=== PATIENT | male | born 1980 | race Hispanic/Latino ===

== ENCOUNTER 2017-05-27 16:40 | Emergency (ER) | payer OTHER ==
[2017-05-27 16:40] VITALS: BMI 25.4
[2017-05-27 16:47] VITALS: TEMP 97.5
--- NOTE | 2017-05-27 16:59 | C.PDOC ---
History Of Present Illness 36 y/o male brought to ED by EMS for rib pain and right sided chest pain for 1 week status post falling and landing on steps. Patient is known to be a drug addict and states he takes percocet every day but reports he has not used fopr 1 week. Patient denies loc, numbness, weakness, sob, cough or any other complaints at this time. Time Seen by Provider: 05/27/17 16:41 Chief Complaint (Nursing): Rib Injury History Per: Patient History/Exam Limitations: no limitations Onset/Duration Of Symptoms: Days Current Symptoms Are (Timing): Still Present Past Medical History Reviewed: Historical Data, Nursing Documentation, Vital Signs Vital Signs: Last Vital Signs Temp 97.5 F L 05/27/17 16:46 Pulse 86 05/27/17 16:46 Resp 20 05/27/17 16:46 BP 125/90 05/27/17 16:46 Pulse Ox 99 05/27/17 18:36 - Medical History PMH: Migraine Surgical History: Appendectomy - [facility] Procedures CLOSURE SKIN & SUBCUTANEOUS NEC (02/14/02) Family History: States: No Known Family Hx - Social History Hx Tobacco Use: Yes Hx Alcohol Use: No Hx Substance Use: Yes (Heroin recovering addict, but used two days ago) - Immunization History Hx Tetanus Toxoid Vaccination: No Hx Influenza Vaccination: No Hx Pneumococcal Vaccination: No Review Of Systems Constitutional: Negative for: Fever, Chills Cardiovascular: Positive for: Chest Pain Gastrointestinal: Negative for: Nausea, Vomiting Musculoskeletal: Positive for: Other (rib pain) Skin: Negative for: Rash Neurological: Negative for: Weakness, Numbness Physical Exam - Physical Exam Appears: Non-toxic, No Acute Distress, Other (Malodorous, Poor hygiene) Skin: Warm, Dry, No Rash, No Ecchymosis Head: Atraumatic, Normacephalic Eye(s): bilateral: Normal Inspection Oral Mucosa: Moist Neck: Normal ROM, Supple Chest: Tenderness (right anterior chest wall) Cardiovascular: Rhythm Regular Respiratory: Normal Breath Sounds, No Rales, No Rhonchi, No Wheezing Gastrointestinal/Abdominal: Soft, No Tenderness, No Guarding, No Rebound Extremity: Normal ROM, Capillary Refill (<2 seconds) Neurological/Psych: Oriented x3 ED Course And Treatment O2 Sat by Pulse Oximetry: 99 (RA) Pulse Ox Interpretation: Normal - Radiology CXR: Interpreted by Me CXR Interpretation: Yes: No Acute Disease Progress Note: Treated with motrin 600 mg PO. On re-evaluation lungs clear, in no distress. Discharge in stable condition Reassessment Condition: Improved Medical Decision Making Medical Decision Making: Plan: CXR, Motrin Disposition Counseled Patient/Family Regarding: Studies Performed, Diagnosis, Need For Followup, Rx Given - Disposition Referrals: [facility] [Outside] [facility] [Outside] [facility] [Outside] Disposition: HOME/ ROUTINE Disposition Time: 18:45 Condition: STABLE Additional Instructions: Take deep breaths every 2 hours Return to ED if any increase symptoms Prescriptions: Naproxen [Naprosyn] 1 tab PO BID PRN #25 tab PRN Reason: Pain Instructions: Chest Wall Pain (ED) Forms: [facility] ([place]) - POA Present On Arrival: None - Clinical Impression Clinical Impression: Contusion of rib, Chest wall pain - PA / COOK CHILI / Resident Statement MD/DO has reviewed & agrees with the documentation as recorded. - Scribe Statement The provider has reviewed the documentation as recorded by the Nixonibrica Cherry All medical record entries made by the Gray were at my direction and personally dictated by me. I have reviewed the chart and agree that the record accurately reflects my personal performance of the history, physical exam, medical decision making, and the department course for this patient. I have also personally directed, reviewed, and agree with the discharge instructions and disposition.
--- NOTE | 2017-05-27 17:22 | RAD ---
HISTORY: SOB COMPARISON: None available. TECHNIQUE: Chest PA and lateral FINDINGS: LUNGS: No focal consolidation. Please note that chest x-ray has limited sensitivity for the detection of pulmonary masses. PLEURA: No significant pleural effusion identified. No definite pneumothorax . CARDIOVASCULAR: Heart size appears within normal limits. OSSEOUS STRUCTURES: No acute osseous abnormality identified. VISUALIZED UPPER ABDOMEN: Unremarkable. OTHER FINDINGS: None. IMPRESSION: No focal consolidation, significant pleural effusion, or definite pneumothorax identified.
[2017-05-27 19:23] VITALS: BP 115/66; PULSE 68; RESP 18; O2SAT 100
== END 2017-05-27 19:22 | disposition home or self-care (01) ==
LOC: C.ER 16:40
DX: S20.211A Contusion of right front wall of thorax, initial encounter (principal); W10.8XXA Fall (on) (from) other stairs and steps, initial encounter; Y92.89 Other specified places as the place of occurrence of the external cause

== ENCOUNTER 2017-06-19 11:39 | Inpatient (IN) | payer OTHER ==
[2017-06-19 11:43] VITALS: BMI 20.3
[2017-06-19 12:21] LABS: SQUAMOUS EPITHIAL < 1 /hpf (0-5); URINE BILIRUBIN NEGATIVE (NEGATIVE); URINE BLOOD NEGATIVE (NEGATIVE); URINE CLARITY Clear (Clear); URINE COLOR Yellow (YELLOW); URINE GLUCOSE (UA) NORMAL (Normal); URINE LEUKOCYTE ESTERASE NEG Leu/uL (Negative); URINE NITRATE NEGATIVE (NEGATIVE); URINE PROTEIN NEGATIVE (NEGATIVE)
[2017-06-19 12:32] LABS: ALB/GLOB RATIO 1.2 (1.0-2.1); ALBUMIN 3.7 g/dL (3.5-5.0); ALT/SGPT 55 U/L (21-72); AST/SGOT 35 U/L (17-59); BLOOD UREA NITROGEN 15 mg/dL (9-20); CALCIUM 9.1 mg/dl (8.6-10.4); GFR AFRICAN-AMERICAN > 60; GFR NON-AFRICAN AMERICAN > 60
[2017-06-19 12:46] LABS: BASO # 0.1 K/uL (0.0-0.2); BASO % 1.1 % (0.0-2.0); EOS # 0.1 K/uL (0.0-0.7); EOS % 2.2 % (0.0-4.0); HEMOGLOBIN 12.3 g/dL (12.0-18.0); LYMPH # 2.3 K/uL (1.0-4.3); LYMPH % 38.1 % (20.0-40.0); MEAN CELL VOLUME 86.9 fL (80.0-94.0); MEAN CORPUSCULAR HEMOGLOBIN 30.6 pg (27.0-31.0); MEAN CORPUSCULAR HGB CONC 35.2 g/dL (33.0-37.0); MEAN PLATELET VOLUME 7.3 fL (7.2-11.7); MONO # 0.7 K/uL (0.0-0.8); NEUT # 2.8 K/uL (1.8-7.0); NEUT % 46.6 % (50.0-75.0); NRBC % 0.1 % (0.0-2.0); RBC 4.03 Mil/uL (4.40-5.90); RED CELL DISTRIBUTION WIDTH 13.5 % (11.5-14.5); WHITE BLOOD COUNT 5.9 K/uL (4.8-10.8)
[2017-06-19 13:06] LABS: BARBITURATES, UR NEGATIVE (NEGATIVE); PHENCYCLIDINE, UR NEGATIVE (NEGATIVE)
[2017-06-19 13:25] LABS: BENZODIAZEPINES, UR POSITIVE (NEGATIVE); OPIATES, UR POSITIVE (NEGATIVE)
--- NOTE | 2017-06-19 14:36 | C.PDOC ---
History Of Present Illness 36 y/o male presents to the ER for detox from heroin and benzodiazepines. Patient reports that he uses 6 to 10 bags of heroin IV daily and he last used heroin about 2 days ago. He uses various kinds of benzodiazepines and he last used them today. Patient denies having any physical complaints. Chief Complaint (Nursing): Substance Abuse History Per: Patient History/Exam Limitations: no limitations Past Medical History Reviewed: Historical Data, Nursing Documentation, Vital Signs Vital Signs: Last Vital Signs Temp 98.4 F 06/20/17 06:30 Pulse 69 06/20/17 06:30 Resp 18 06/20/17 06:30 BP 145/95 H 06/20/17 06:30 Pulse Ox 97 06/20/17 06:30 - Medical History PMH: Hepatitis (C), Migraine Denies: Diabetes, HIV, HTN, Seizures, Sexually Transmitted Disease Surgical History: Appendectomy - [facility] Procedures CLOSURE SKIN & SUBCUTANEOUS NEC (02/14/02) Family History: States: No Known Family Hx - Social History Hx Tobacco Use: Yes Hx Alcohol Use: No Hx Substance Use: Yes (Heroin recovering addict, but used two days ago) - Immunization History Hx Tetanus Toxoid Vaccination: No Hx Influenza Vaccination: No Hx Pneumococcal Vaccination: No Review Of Systems Except As Marked, All Systems Reviewed And Found Negative. Physical Exam - Physical Exam Appears: No Acute Distress Skin: Normal Color, Warm Head: Atraumatic, Normacephalic Eye(s): bilateral: Normal Inspection Nose: Normal Oral Mucosa: Moist Neck: Supple Chest: Symmetrical Cardiovascular: Rhythm Regular Respiratory: Normal Breath Sounds, No Accessory Muscle Use, No Rales, No Rhonchi , No Wheezing Extremity: Normal ROM Neurological/Psych: Oriented x3, Normal Speech, Normal Motor, Normal Sensation ED Course And Treatment - Laboratory Results Result Diagrams: 06/19/17 12:42 06/19/17 12:16 O2 Sat by Pulse Oximetry: 100 (RA) Pulse Ox Interpretation: Normal Medical Decision Making Medical Decision Making: Plan: --Labs --UA --UDS Updates: Patient admitted to hospital. Disposition - Disposition Disposition: HOSPITALIZED Disposition Time: 13:30 Condition: STABLE - Clinical Impression Clinical Impression: Drug dependence, Drug abuse - Scribe Statement The provider has reviewed the documentation as recorded by the Gray [place] Provider Attestation: All medical record entries made by the Scribe were at my direction and personally dictated by me. I have reviewed the chart and agree that the record accurately reflects my personal performance of the history, physical exam, medical decision making, and the department course for this patient. I have also personally directed, reviewed, and agree with the discharge instructions and disposition.
[2017-06-19] MEDS ORDERED: Aluminum Hydroxide/Magnesium Hydroxide Susp (30 mL) PO PRN (14:41)
--- NOTE | 2017-06-19 16:14 | PCM.BM ---
<Karly Montalvo - Last Filed: 06/19/17 16:12> Treatment Plan Problems - Problems identified on initial assessmt potential for opiates withdrawal Date Initiated: 06/19/17 Time Initiated: 16:13 Assessment reference: NA Status: Active anxiety Date Initiated: 06/19/17 Time Initiated: 16:13 Assessment reference: NA Status: Active - Milieu Protocol Maintain good personal hygiene: daily Encourage regular showers, daily Remind patient to perform daily oral care, daily Assist patient to perform ADL's Conduct patient checks and document Observation sheet: Q15 minutes Maintain personal safety: every shift Educate patient to report safety concerns to staff, every shift Monitor environment for contraband/sharps Medication safety: Monitor for expected outcome, potential side effects: every shift, Assess barriers to learning: every shift, Assess readiness for medication education: every shift <Debbie Ayon - Last Filed: 06/20/17 08:08> - Diagnosis (1) Opioid use disorder, severe, dependence Status: Acute Interventions: 06/20/17 08:08 * Assess 7x/week regarding severity of withdrawal * Educate regarding risks, benefits, side effects and alternatives of medications * Use Motivational Interviewing for abstinence * Use CBT for relapse prevention * Medication management for withdrawal symptoms * Encourage medication assisted treatment * (2) Sedative, hypnotic or anxiolytic use disorder, severe, dependence Status: Acute Interventions: 06/20/17 08:08 * Assess 7x/week regarding severity of withdrawal * Educate regarding risks, benefits, side effects and alternatives of medications * Use Motivational Interviewing for abstinence * Use CBT for relapse prevention * Medication management for withdrawal symptoms * Encourage medication assisted treatment *
--- NOTE | 2017-06-20 09:22 | PCM.PSYCH ---
Initial Psychiatric Evaluation - Initial Psychiatric Evaluation Type of Admission: Voluntary Legal Status: Capacity Current Medications: Active Medications Generic Name Dose Route Start Last Admin Trade Name Freq PRN Reason Stop Dose Admin Al Hydrox/Mg Hydrox/Simethicone 30 ml 06/19/17 14:41 Maalox 30 Ml PO TID PRN Indigestion / Heartburn Chlordiazepoxide 50 mg 06/20/17 10:00 Librium PO 06/25/17 09:59 Q6 HAVEN Taper Chlordiazepoxide 25 mg 06/20/17 08:04 Librium PO Q4H PRN Alcohol Withdrawal Clonidine HCl 0.1 mg 06/19/17 14:41 Catapres PO Q8 PRN COWS Score More or Equal to 5 Gabapentin 300 mg 06/20/17 14:00 Neurontin PO TID HAVEN Hydroxyzine HCl 50 mg 06/19/17 14:40 06/19/17 20:34 Atarax PO 50 mg Q6H PRN Administration Anxiety Ibuprofen 600 mg 06/19/17 14:40 Motrin Tab PO Q6H PRN Pain, moderate (4-7) Levetiracetam 250 mg 06/20/17 10:00 Keppra PO BID HAVEN Loperamide HCl 2 mg 06/19/17 14:41 Imodium PO Q8 PRN Diarrhea Multivitamins 1 tab 06/20/17 10:00 Hexavitamin PO DAILY [facility] Ondansetron HCl 4 mg 06/19/17 14:41 Zofran Tab PO Q8 PRN Nausea/Vomiting Pneumococcal Polyvalent Vaccine 0.5 ml 06/21/17 10:00 Pneumovax 23 Vaccine IM 06/21/17 10:01 .ONCE ONE Trazodone HCl 100 mg 06/19/17 22:00 Desyrel PO HS PRN Insomnia Past Psychiatric History - Past Psychiatric History Previous Treatment History: Inpatient Pertinent Medical Hx (Current Medical&Sleep Prob, Allergies): Allergies Allergy/AdvReac Type Severity Reaction Status Date / Time No Known Allergies Allergy Verified 05/27/17 16:45 No Known Home Med 06/19/17 Review of Systems - Review of Systems All systems: reviewed and no additional remarkable complaints except - Psychiatric Psychiatric: Anxiety, Irritability. absent: Suicidal Ideation Mental Status Examination - Personal Presentation Personal Presentation: Looks stated age - Affect Affect: Constricted - Motor Activity Motor Activity: Calm - Reliability in Providing Information Reliability in Providing Information: Good - Speech Speech: Organized - Mood Mood: Anxious - Formal Thought Process Formal Thought Process: No Impairment - Obsessions/Compulsions Obsessions: No Compulsions: No - Cognitive Functions Orientation: Person, Place, Situation, Time Sensorium: Alert Attention/Concentration: Attentive Abstract Thinking: [place] Estimate of Intelligence: Below average Judgement: Imparied, as evidence by: Poor judgement, Intact, as evidence by: Good judgement - Risk Risk: Withdrawal, Diminished functioning - Limitations Limitations: Living alone DSM 5 DX - DSM 5 DSM 5 Diagnosis: opiate use disorder sever Opiate withdrawal Sedative/hypnotic use disorder severe Sedative/hypnotic withdrawal - Recommended/Plan of Treatment Treatment Recommendations and Plan of Treatment: opiate use disorder sever Opiate withdrawal Methadone taper Neurontin 300 mg by mouth twice a day Trazodone 50 mg by mouth daily at bedtime Sedative/hypnotic use disorder severe Librium taper Sedative/hypnotic withdrawal Seizure disorder Start Keppra 250 mg by mouth twice a day
[2017-06-20] MEDS: Multiple Vitamins Tab PO SCH (09:38)
[2017-06-21] MEDS: Multiple Vitamins Tab PO SCH (09:15)
[2017-06-21] MEDS ORDERED: Pneumococcal 23-Valent Vaccine IM ONE (10:00)
[2017-06-21 11:02] VITALS: BP 128/76; PULSE 96; RESP 19; TEMP 98.2; O2SAT 99
--- NOTE | 2017-06-21 12:01 | PCM.PYCHDC ---
Mental Status Examination - Mental Status Examination Orientation: Person, Place, Situation, Time Memory: Intact Mood: Neutral Affect: Constricted Speech: Soft Attention: WNL Concentration: WNL Association: WNL Fund of Knowledge: WNL Formal Thought Process: No Impairment Suicidal Ideation: No Current Homicidal Ideation?: No Discharge Summary - Discharge Note Consultations:: List each consultation separately and include: 1. Reason for request. 2. Findings. 3. Follow-up Summary of Hospital Course include:: 1. Description of specific treatment plan utilized for patients during their course of treatmen. 2. Summarize the time- course for resolution of acute symptoms and/or regressed behaviors. 3. Describe issues identified and worked on during hospitalization. 4. Describe medication utilized. 5. Describe medical problems identified and treated. 6. Reassessment of suicide risk - Final Diagnosis (DSM 5) Condition upon Discharge: STABLE Disposition: AGAINST MEDICAL ADVICE Follow-up Treatment Plan: opiate use disorder sever Opiate withdrawal Methadone taper Neurontin 300 mg by mouth twice a day Trazodone 50 mg by mouth daily at bedtime Sedative/hypnotic use disorder severe Librium taper Sedative/hypnotic withdrawal Seizure disorder Start Keppra 250 mg by mouth twice a day Prescriptions/Medication Reconciliation: Gabapentin [Neurontin] 300 mg PO BID 14 Days cap levETIRAcetam [Keppra] 250 mg PO BID 14 Days #14 tab
== END 2017-06-21 12:23 | disposition left against medical advice (07) | DRG 743 ==
LOC: C.ER 11:39 → C.7D 14:20 → EEVIPCON 14:20
PROVIDERS: ADMIT Psychiatry & Neurology Psychiatry; ATTEND Psychiatry & Neurology Psychiatry
PROC: HZ2ZZZZ Detoxification Services for Substance Abuse Treatment (ICD-10-PCS; principal; 2017-06-19)
PROC: HZ56ZZZ Individual Psychotherapy for Substance Abuse Treatment, Psychoeducation (ICD-10-PCS; 2017-06-19)
PROC: HZ36ZZZ Individual Counseling for Substance Abuse Treatment, Psychoeducation (ICD-10-PCS; 2017-06-19)
DX: F11.23 Opioid dependence with withdrawal (principal); F13.239 Sedative, hypnotic or anxiolytic dependence with withdrawal, unspecified; F17.210 Nicotine dependence, cigarettes, uncomplicated; B19.20 Unspecified viral hepatitis C without hepatic coma; G43.909 Migraine, unspecified, not intractable, without status migrainosus

== ENCOUNTER 2017-07-31 09:39 | Emergency (ER) | payer OTHER ==
[2017-07-31 09:57] VITALS: BMI 21.7
--- NOTE | 2017-07-31 11:05 | C.PDOC ---
History Of Present Illness 37 y/o male presents to ED requesting detox from Heroin and Xanax. Patient reports last used yesterday and as per brother all week patient has been blacking out and is concerned to leave patient on his own. Patient denies suicidal ideation, homicidal ideation or hallucinations. Time Seen by Provider: 07/31/17 10:12 Chief Complaint (Nursing): Substance Abuse History Per: Patient History/Exam Limitations: no limitations Onset/Duration Of Symptoms: Days Current Symptoms Are (Timing): Still Present Suicide/Self Injury Attempted (Context): None Past Medical History Reviewed: Historical Data, Nursing Documentation, Vital Signs Vital Signs: Last Vital Signs Temp 98.1 F 07/31/17 11:08 Pulse 72 07/31/17 11:08 Resp 18 07/31/17 11:08 BP 126/80 07/31/17 11:08 Pulse Ox 98 07/31/17 11:18 - Medical History PMH: Hepatitis (C), Migraine Surgical History: Appendectomy - [facility] Procedures CLOSURE SKIN & SUBCUTANEOUS NEC (02/14/02) DETOXIFICATION SERVICES FOR SUBSTANCE ABUSE TREATMENT (06/19/17) INDIV MANAGER IN TRAINING FOR SUBSTANCE ABUSE TREATMENT, PSYCHOEDUCATION (06/19/17) INDIV PSYCHOTHERAPY FOR SUBSTANCE ABUSE, PSYCHOEDUCATION (06/19/17) Family History: States: No Known Family Hx - Social History Hx Tobacco Use: Yes Hx Alcohol Use: Yes Hx Substance Use: Yes - Immunization History Hx Tetanus Toxoid Vaccination: No Hx Influenza Vaccination: No Hx Pneumococcal Vaccination: No Review Of Systems Constitutional: Negative for: Fever, Chills Cardiovascular: Negative for: Chest Pain Respiratory: Negative for: Shortness of Breath Gastrointestinal: Negative for: Nausea, Vomiting Skin: Negative for: Rash Psych: Negative for: Suicidal ideation Physical Exam - Physical Exam Appears: Non-toxic, No Acute Distress Skin: Warm, Dry, No Rash Head: Atraumatic, Normacephalic Oral Mucosa: Moist Neck: Normal ROM, Supple Cardiovascular: Rhythm Regular Respiratory: Normal Breath Sounds, No Rales, No Rhonchi, No Wheezing Gastrointestinal/Abdominal: Soft, No Tenderness, No Guarding, No Rebound Extremity: Bilateral: Atraumatic Neurological/Psych: Oriented x3, Normal Speech ED Course And Treatment O2 Sat by Pulse Oximetry: 98 (RA) Pulse Ox Interpretation: Normal Medical Decision Making Medical Decision Making: boat worker contacted, there are no detox beds available. Patient discharged with list of detox services. Disposition Counseled Patient/Family Regarding: Diagnosis, Need For Followup - Disposition [facility]errals: [facility] [Outside] Disposition: HOME/ ROUTINE Disposition Time: 11:04 Condition: STABLE Additional Instructions: [facility] at [address] [place] [address]. Please call [phone] or [phone] to arrange appointment. If you need to speak to someone immediately call Crisis Hotline [phone] Please call [phone] or [phone] to inquire about our Detox availability , may speak to coordinator Sugar Instructions: Opioid Use Disorder Forms: [employer] (Vietnamese) - POA Present On Arrival: None - Clinical Impression Clinical Impression: Opioid use disorder, severe, dependence - PA / MATERIALS ASSOCIATE / Resident Statement MD/DO has reviewed & agrees with the documentation as recorded. - Scribe Statement The provider has reviewed the documentation as recorded by the Gray Cherry All medical record entries made by the Gray were at my direction and personally dictated by me. I have reviewed the chart and agree that the record accurately reflects my personal performance of the history, physical exam, medical decision making, and the department course for this patient. I have also personally directed, reviewed, and agree with the discharge instructions and disposition.
[2017-07-31 11:09] VITALS: BP 126/80; PULSE 72; RESP 18; TEMP 98.1
[2017-07-31 11:18] VITALS: O2SAT 98
== END 2017-07-31 11:14 | disposition home or self-care (01) ==
LOC: C.ER 09:39
DX: F11.20 Opioid dependence, uncomplicated (principal)